=== PATIENT | male | born 1955 | race Caucasian/White ===

== ENCOUNTER 2020-08-19 06:34 | Day surgery (SDC) | payer OTHER ==
--- NOTE | 2020-08-14 14:06 | RAD REPORT ---
EXAM DESCRIPTION: RAD - Chest Pa And Lat (2 Views) - 08/14/2020 2:01 pm CLINICAL HISTORY: preop Chest pain. COMPARISON: No comparisons FINDINGS: The lungs are clear. The heart is upper limit of normal in size. No displaced fractures.
[2020-08-14 14:22] LABS: Absolute Lymphocytes (CBC) 1.6 K/uL (0.7-4.9); Basophils % 0.4 % (0-1.3); Hematocrit 42.9 % (39.6-49.0); Lymphocytes % 20.2 % (15.3-44.8); MPV 9.8 fL (7.6-11.3); RBC Red Blood Cell Count 4.53 M/uL (4.33-5.43)
[2020-08-14 14:34] LABS: Protime INR 1.05
[2020-08-14 15:02] LABS: Potassium 4.5 mmol/L (3.5-5.1)
[2020-08-19] MEDS ORDERED: NA CHLORIDE 0.9% 500 ML ONE (07:01)
[2020-08-19] MEDS ORDERED: HEPA 1000U/500MLS 1,000 UNIT/500 ML BAG IV ONE (07:35)
[2020-08-19] MEDS ORDERED: LIDOCAINE 1% 20 ML MDV ONE (07:35)
[2020-08-19] MEDS ORDERED: MIDAZOLAM HCL 2 MG/2 ML INJ ONE ×2 (07:41→07:47)
[2020-08-19] MEDS ORDERED: NITROGLYCERIN 100 MCG/ML SYR (for cath lab use only) IV ONE (07:42)
[2020-08-19] MEDS ORDERED: FENTANYL CITR 100 MCG/2 ML ONE (07:42)
[2020-08-19] MEDS ORDERED: ATROPINE SULF 1 MG/10 ML SYR IV ONE (07:43)
[2020-08-19] MEDS ORDERED: NA CHLORIDE 0.9% 0 ML ONE (07:44)
[2020-08-19] MEDS ORDERED: NITROGLYCERIN/D5W 0 MG/0 ML BTL IV ONE (07:44)
[2020-08-19] MEDS ORDERED: METOPROLOL TARTRATE 5 MG/5 ML INJ IV ONE ×3 (07:56→08:05)
[2020-08-19 08:31] VITALS: TEMP 96.9
--- NOTE | 2020-08-19 09:21 | OP ---
Date of Procedure: 08/19/2020 Surgeon: Mauro Childs MD Program Schedule Clerk: Veronica Dos Santos. Indication: Mr. Sung is a 65-year-old white male with history of CAD, status post RCA and LAD stent, who came in basically with unstable angina, scheduled for a heart catheterization as an outpatient t adan 08/19/2020. Procedure In Detail: He was brought as an outpatient, prepped and draped in routine sterile fashion, given Versed and fentanyl for sedation. A 6-Filipino sheath introduced in the right common femoral ar pedro successfully, using the Seldinger technique and 10 cc xylocaine. JL4 and JR4 catheter were used to do the heart catheterization. He was found to have a 50% proximal LAD. The patent LAD stent a 5 0% ostial diagonal, 100% RCA occluded at the stent with collaterals from the LAD to the RCA. He was right dominant. Complications: There were no complications. Estimated Blood Loss: 5 mL. Anesthesia: Total conscious sedation was 45 minutes. Final Diagnoses: 1.Severe coronary artery disease. We will continue medical therapy. 2.Incidental atrial fibrillation. He is status post 50 mg of IV Lopressor push, remained in atrial fibrillation, rate was 110. He is on beta-pravin at home and aspirin. I am going to add Xarelto to his regimen and I will see him in the office in next 2 weeks. He will be at bedrest for 2 hours after using Angio-Seal today. I will see him in the office in the next couple of days. BELEM/ARMAND Voice ID: [id number] Report ID: [id number]
[2020-08-19 10:29] VITALS: BP 135/68; O2SAT 94
== END 2020-08-19 10:15 | disposition home or self-care (01) ==
LOC: CCL 06:34
DX: I25.110 Atherosclerotic heart disease of native coronary artery with unstable angina pectoris (principal); I25.82 Chronic total occlusion of coronary artery; I48.91 Unspecified atrial fibrillation; I10 Essential (primary) hypertension; E78.2 Mixed hyperlipidemia; E11.9 Type 2 diabetes mellitus without complications; E66.9 Obesity, unspecified; Z68.30 Body mass index [BMI] 30.0-30.9, adult; Z95.5 Presence of coronary angioplasty implant and graft; Z79.02 Long term (current) use of antithrombotics/antiplatelets; Z87.891 Personal history of nicotine dependence; Z82.49 Family history of ischemic heart disease and other diseases of the circulatory system
CPT/HCPCS: 93005; 85025; 80048; 36415; 85610; 82947; 85730; 71046; 93454; U0002; C1893; J2250; J3010; J7040; J1644; J0583

== ENCOUNTER 2021-02-22 10:32 | Inpatient (IN) | payer OTHER ==
[2021-02-22 11:35] LABS: Absolute Lymphocytes (CBC) 1.6 K/uL (0.7-4.9); Basophils % 0.4 % (0-1.3); Hematocrit 39.3 % (39.6-49.0); Lymphocytes % 15.8 % (15.3-44.8); MPV 9.3 fL (7.6-11.3); RBC Red Blood Cell Count 4.11 M/uL (4.33-5.43)
[2021-02-22 11:36] LABS: Protime INR 1.11
[2021-02-22] MEDS ORDERED: MORPHINE 2 MG/ML SYR ONE ×2 (11:36→12:44)
--- NOTE | 2021-02-22 11:38 | RAD REPORT ---
EXAM DESCRIPTION: RAD - Chest Single View - 02/22/2021 11:24 am CLINICAL HISTORY: CHEST PAIN COMPARISON: Two view chest August 14 TECHNIQUE: AP portable chest image was obtained 02/22/2021 11:24 am . FINDINGS: No new mass or consolidation identified in the lung parenchyma. Chronic interstitial opaci ties are not clearly different when adjusting for the technique differences on the 2 examinations. Ba seline pattern could potentially mask a mild edema or infiltrate. Heart and vasculature are normal. No measurable pleural effusion and no pneumothorax. No acute bony abnormality seen. No acute aortic findings suspected. IMPRESSION: Prominent interstitial pattern matching comparison. Extent of chronic disease could mask early edema or infiltrate.
[2021-02-22 11:57] LABS: Bilirubin Direct 0.2 mg/dL (0-0.2); Bilirubin Total 0.6 mg/dL (0.2-1.0); Magnesium 1.9 mg/dL (1.8-2.4); Potassium 4.6 mmol/L (3.5-5.1); Protein, Total 7.8 g/dL (6.4-8.2)
[2021-02-22 12:03] LABS: Troponin (Emerg Dept Use Only) 0.6 ng/mL (0.0-0.045)
--- NOTE | 2021-02-22 13:03 | RAD REPORT ---
EXAM DESCRIPTION: CT - Angio Aorta For Dissection - 02/22/2021 12:42 pm CLINICAL HISTORY: Chest pain radiating to the back. back pain;Chest pain COMPARISON: No comparisons TECHNIQUE: CT angiography of the aorta was performed with MIPs. All CT scans are performed using dose optimization technique as appropriate and may include automated exposure control or mA/KV adjustment according to patient size. FINDINGS: A left aortic arch is present with normal branching pattern of the great vessels.No acute aortic finding is seen such as aneurysm, penetrating ulcer or dissection. The celiac axis, SMA, HILARIA and renal arteries are patent. No evidence of pulmonary embolism. Mild pulmonary edema is seen. Small bilateral pleural effusions. The liver demonstrates no focal mass or biliary dilatation.The spleen, pancreas, adrenal glands and k idneys are within normal limits for arterial phase imaging.15 mm cyst superior right kidney. No bowel obstruction, free fluid or abscess.Moderate stool is present throughout the colon with sigmo id diverticulosis. No diverticulitis suspectedNo pathologic enlarged lymphadenopathy identified.Kristi l appendix. Small bilateral fat containing inguinal hernias. Mild lumbosacral degenerative changes. IMPRESSION: No acute aortic finding is demonstrated.No pulmonary embolism. Mild to moderate CHF. Moderate fecal retention throughout the colon with diverticulosis coli.
--- NOTE | 2021-02-22 13:43 | ER ---
Nurse's Notes [facility] Name: Fawad Sung Age: 66 yrs Sex: Male : 1955 Arrival Date: 02/22/2021 Time: 10:33 Bed 8 Private MD: Diagnosis: Subsequent non-ST elevation (NSTEMI) myocardial infarction Presentation: 02/22 10:41 Chief complaint: Patient states: chest pain and upper back pain that began "a few days aa5 ago". Pt states "I've been taking some old Nitro that I had at home and they've been working pretty well". Pt also reports SOB. Coronavirus screen: cough unrelated to allergies. Ebola Screen: Patient negative for fever greater than or equal to 101.5 degrees Fahrenheit, and additional compatible Ebola Virus Disease symptoms. Initial Sepsis Screen: Does the patient meet any 2 criteria? No. Patient's initial sepsis screen is negative. Does the patient have a suspected source of infection? No. Patient's initial sepsis screen is negative. Risk Assessment: Do you want to hurt yourself or someone else? Patient reports no desire to harm self or others. Onset of symptoms was January 2021. 10:41 Method Of Arrival: Ambulatory aa5 10:41 Acuity: PONCE 2 aa5 Historical: - Allergies: 10:43 No Known Allergies; aa5 - PMHx: 10:43 Diabetes mellitus; Hypertensive disorder; aa5 - PSHx: 10:43 Heart Stents x 3; aa5 - Immunization history:: Client reports having NOT received the Covid vaccine. Last tetanus immunization: unknown, Pneumococcal vaccine status is unknown. - Social history:: Smoking status: Patient denies any tobacco usage or history of. Screenin:20 Abuse screen: Denies threats or abuse. Nutritional screening: No deficits noted. tw5 Tuberculosis screening: No symptoms or risk factors identified. Fall Risk None identified. Assessment: 10:45 Pain: Pain radiates to anterior aspect of left upper chest, mid-sternal area and left tw5 breast Pain began 2-3 days ago. 11:20 General: Appears uncomfortable, Behavior is calm, cooperative, Reports fatigue for 2-3 tw5 days. Neuro: Level of Consciousness is awake, alert, obeys commands, Oriented to person, place, time, situation, Appropriate for age Speech is normal. Cardiovascular: Reports chest pain, shortness of breath, "I just feel winded real bad. I had a good day Monday, I went bowling with family and went out to eat." Heart tones S1 S2 Capillary refill < 3 seconds Rhythm is PVC's noted on monitor. Respiratory: Reports shortness of breath at rest Airway is patent Trachea midline Respiratory effort is. GI: No deficits noted. No signs and/or symptoms were reported involving the gastrointestinal system. 12:18 Reassessment: Patient and/or family updated on plan of care and expected duration. Pain tw5 level reassessed. "I would like another shot of that morphine." Patient states symptoms have not improved. at the bedside currently. . 12:53 Reassessment: Patient and/or family updated on plan of care and expected duration. Pain tw5 level reassessed. "The morphine helped for a second, but the pain is back and it comes in go in sharp waves". 13:40 Reassessment: Patient and/or family updated on plan of care and expected duration. Pain tw5 level reassessed. Patient is alert, oriented x 3, equal unlabored respirations, skin warm/dry/pink. Respiratory: Reports shortness of breath Airway is patent Trachea midline Respiratory effort is unlabored. 14:53 Reassessment: Patient states symptoms have improved. General: Appears in no apparent tw5 distress. comfortable, Behavior is calm, cooperative. Pain: Pain currently is 2 out of 10 on a pain scale. 14:53 Cardiovascular: Reports since "The pain is a little better, after you put that cream on tw5 my chest, but I am uncomfortable.". 16:00 Reassessment: Patient appears in no apparent distress at this time. Patient and/or jd3 family updated on plan of care and expected duration. Pain level reassessed. Patient is alert, oriented x 3, equal unlabored respirations, skin warm/dry/pink. awaiting admission. 16:54 Reassessment: Patient appears in no apparent distress at this time. Patient and/or jd3 family updated on plan of care and expected duration. Pain level reassessed. Patient is alert, oriented x 3, equal unlabored respirations, skin warm/dry/pink. pt with A-fib, provider notified, EKG done and medicated as ordered. 17:37 Reassessment: Patient appears in no apparent distress at this time. Patient and/or jd3 family updated on plan of care and expected duration. Pain level reassessed. Patient is alert, oriented x 3, equal unlabored respirations, skin warm/dry/pink. Cardiovascular: Rhythm is regular. 17:55 Reassessment: "I am just feeling cold, but I feel a little better.". Cardiovascular: tw5 Rhythm is atrial fibrillation. 17:57 General: Cherri, at the bedside. . tw5 19:00 Reassessment: Patient and/or family updated on plan of care and expected duration. Pain ea level reassessed. Patient is alert, oriented x 3, equal unlabored respirations, skin warm/dry/pink. 20:10 Reassessment: Patient and/or family updated on plan of care and expected duration. Pain ea level reassessed. Patient is alert, oriented x 3, equal unlabored respirations, skin warm/dry/pink. Pt admitted to second floor, left ED via wheelchair per ED Nurse pt tolerating well. Vital Signs: 10:40 BP 136 / 77; Pulse 76; Resp 22; Pulse Ox 99% on R/A; Pain 10/10; tw5 10:41 BP 136 / 77; Pulse 72; Resp 18 S; Temp 97.7(O); Pulse Ox 97% on R/A; aa5 12:51 Pain 7/10; tw5 12:53 BP 134 / 73; Pulse 80; Resp 24; Pulse Ox 96% ; Pain 7/10; tw5 12:53 Pain 4/10; tw5 13:27 Weight 115.67 kg (M); kg 13:40 BP 150 / 79; Pulse 79; Resp 22; Pulse Ox 96% on 2 lpm NC; Pain 5/10; tw5 14:53 BP 143 / 62; Pulse 76; Resp 24; Pulse Ox 99% on 2 lpm NC; Pain 2/10; tw5 15:03 Pain 3/10; tw5 15:03 Pain 3/10; tw5 16:00 BP 145 / 81; Pulse 110; Resp 20 S; Pulse Ox 98% on R/A; jd3 16:53 BP 133 / 107; Pulse 123; Resp 21 S; Pulse Ox 98% on R/A; jd3 17:36 BP 136 / 81; Pulse 78; Resp 16 S; Pulse Ox 98% on R/A; jd3 17:55 BP 136 / 81; Pulse 119; Resp 24; Pulse Ox 98% on R/A; Pain 0/10; tw5 19:21 BP 142 / 79; Pulse 72; Resp 18; Pulse Ox 98% ; ea 13:40 Oxygen dropped to 88 on RA. NC placed on patient. tw5 16:53 provider notified of A-fib jd3 17:36 normal sinus jd3 ED Course: 10:33 Patient arrived in ED. as 10:39 Arm band placed on Patient placed in an exam room, on a stretcher. aa5 10:40 Bed in low position. quality assurance monitor chassis on. Pulse ox on. NIBP on. tw5 10:40 EKG done, by ED staff, reviewed by Sean Rubio MD. tw5 10:41 Melissa Farris is Primary Nurse. tw5 10:43 Triage completed. aa5 10:46 Sean Hansen PA is PHCP. cp 10:46 Sean Rubio MD is Attending Physician. cp 11:10 Awaiting lab results. tw5 11:10 Door closed. Noise minimized. Lights dimmed. Verbal reassurance given. tw5 11:10 Patient maintains SpO2 saturation greater than 95% on room air. tw5 11:20 Patient has correct armband on for positive identification. Side rails up X2. tw5 11:24 XRAY Chest (1 view) In Process Unspecified. EDMS 11:25 Initial lab(s) drawn, by ED staff, COVID swab sent to lab. tw5 11:26 Accessed peripheral vein via ultrasound, utilizing dynamic ultrasound technique using jd3 20G Nexia IV catheter ,sterile technique, per hospital protocol. Clean \\T\\ dry. Dressing intact. Good blood return. Flushes easily. 20 G to the left AC. 12:42 CT Aorta for Dissection In Process Unspecified. EDMS 12:54 Awaiting: Awaiting on CT scan results. tw5 12:54 Verbal reassurance given. tw5 13:40 Awaiting re-evaluation by ER provider. tw5 13:40 Oxygen administration via nasal cannula \\T\\ 2L/min. tw5 13:41 Popeye Al DO is Hospitalizing Provider. cp 13:43 Awaiting bed assignment. tw5 13:44 Door closed. Noise minimized. Lights dimmed. Warm blanket given. Verbal reassurance tw5 given. 14:53 Call light in reach. Door closed. Noise minimized. Lights dimmed. Verbal reassurance tw5 given. 15:04 Patient assisted to chair. . tw5 17:57 No apparent distress. tw5 17:57 Diet: Patient given a heart healthy meal tray. tw5 19:21 No provider procedures requiring assistance completed. Patient admitted, IV remains in ea place. Administered Medications: 11:16 Drug: morphine 2 mg Route: IVP; Site: left antecubital; tw5 12:22 Drug: morphine 2 mg Route: IVP; Site: left antecubital; jd3 12:51 Follow up: Pain 7/10 Adult; Response: No adverse reaction; Pain is decreased tw5 12:52 Follow up: Response: RASS: Alert and Calm (0) tw5 12:53 Follow up: Pain 4/10; Response: RASS: Alert and Calm (0); "It is better, but my chest tw5 still feels heavy." 13:42 Drug: Aspirin Chewable Tablet 324 mg Route: PO; kg 15:03 Follow up: Pain 3/10 Adult; Response: No adverse reaction; Pain is decreased tw5 13:42 Drug: Lovenox (enoxaparin) 1 mg/kg Route: Sub-Q; Site: right lower abdomen; kg 15:03 Follow up: Response: No adverse reaction tw5 13:42 Drug: Nitro-Bid (nitroglycerin) Ointment 2 % 0.5 inches Route: Transdermal; Site: kg anterior chest wall; 15:03 Follow up: Pain 3/10 Adult; Response: No adverse reaction; Pain is decreased tw5 16:53 Drug: Metoprolol 25 mg Route: PO; jd3 17:58 Follow up: Response: No adverse reaction; Cardiac rhythm is unchanged tw5 16:53 Drug: Metoprolol 5 mg Route: IVP; Site: left antecubital; jd3 17:58 Follow up: Response: No adverse reaction; Cardiac rhythm is unchanged tw5 Intake: Outcome: 13:42 Decision to Hospitalize by Provider. cp 18:00 Admitted to Med/surg Report called to Attempted to call report. No nurse available. tw5 18:49 Admitted to Med/surg Report called to Attempted to call report again. Was told Cherry tw5 would be the receiving nurse. Placed on hold for 3min 20:10 Condition: stable ea 20:14 Patient left the ED. ea Signatures: Dispatcher [employer] Brianne Segura Audri, RN RN aa5 Sean Hansen PA PA cp Antunez, Elena, RN RN ea Davies, Jonathon, RN RN jRenetta Puentes RN RN kg Polina Farrisfany Corrections: (The following items were deleted from the chart) 11:27 11:10 Inserted saline lock: 20 gauge in left antecubital area, using aseptic technique. jd3 12:53 11:28 Pain 4/10 Adult; "It is better, but my chest still feels heavy." 14:54 14:53 Cardiovascular:
--- NOTE | 2021-02-22 13:43 | EDPHYS ---
Physician Documentation [facility] Name: Fawad Sung Age: 66 yrs Sex: Male : 1955 Arrival Date: 02/22/2021 Time: 10:33 Bed 8 Private MD: ED Physician Sean Rubio HPI: 02/22 10:53 This 66 yrs old Male presents to ER via Ambulatory with complaints of Chest cp Pain. 10:54 The patient or guardian reports chest pain that is located primarily in the substernal cp area. Onset: 3 day(s) ago. The pain radiates to 10:54 Associated signs and symptoms: Pertinent positives: shortness of breath, Pertinent cp negatives: abdominal pain, cough, diaphoresis, lower extremity pain, lower extremity swelling, syncope, vomiting. 10:54 The chest pain is described as aching. cp 10:54 Duration: The patient or guardian reports multiple episodes, that wax and wane. cp Modifying factors: the symptoms are aggravated by activity. Historical: - Allergies: 10:43 No Known Allergies; aa5 - PMHx: 10:43 Diabetes mellitus; Hypertensive disorder; aa5 - PSHx: 10:43 Heart Stents x 3; aa5 - Immunization history:: Client reports having NOT received the Covid vaccine. Last tetanus immunization: unknown, Pneumococcal vaccine status is unknown. - Social history:: Smoking status: Patient denies any tobacco usage or history of. ROS: 10:55 Cardiovascular: Positive for chest pain, Negative for edema, palpitations. cp 10:55 Eyes: Negative for injury, pain, redness, and discharge. cp 10:55 Constitutional: Negative for body aches, chills, fever, poor PO intake. 10:55 ENT: Negative for drainage from ear(s), ear pain, sore throat, difficulty swallowing, difficulty handling secretions. 10:55 Respiratory: Negative for cough, shortness of breath, wheezing. 10:55 Abdomen/GI: Negative for abdominal pain, nausea, vomiting, and diarrhea. 10:55 Back: Positive for radiated pain. 10:55 : Negative for urinary symptoms. 10:55 Neuro: Negative for altered mental status, headache, syncope, weakness. 10:55 All other systems are negative. Exam: 10:47 ECG was reviewed by the Attending Physician. cp 11:00 Constitutional: The patient appears in no acute distress, alert, awake, cp non-diaphoretic, non-toxic, well developed, well nourished, uncomfortable. 11:00 Head/Face: Normocephalic, atraumatic. cp 11:00 Eyes: Periorbital structures: appear normal, Conjunctiva: normal, no exudate, no injection, Sclera: no appreciated abnormality, Lids and lashes: appear normal, bilaterally. 11:00 ENT: External ear(s): are unremarkable, Nose: is normal, Mouth: Lips: moist, Oral mucosa: moist, Posterior pharynx: Airway: no evidence of obstruction, patent. 11:00 Neck: ROM/movement: is normal, is supple, without pain, no range of motions limitations, no nuchal rigidity. 11:00 Chest/axilla: Inspection: normal, Palpation: is normal, no crepitus, no tenderness. 11:00 Cardiovascular: Rate: normal, Rhythm: regular, Edema: is not appreciated, JVD: is not appreciated. 11:00 Respiratory: the patient does not display signs of respiratory distress, Respirations: normal, no use of accessory muscles, no retractions, labored breathing, is not present, Breath sounds: are clear throughout, no decreased breath sounds, no stridor, no wheezing. 11:00 Abdomen/GI: Inspection: abdomen appears normal, Bowel sounds: active, all quadrants, Palpation: abdomen is soft and non-tender, in all quadrants. 11:00 Back: pain, that is moderate, ROM is normal. 11:00 Skin: cellulitis, is not appreciated, no rash present. 11:00 Neuro: Orientation: to person, place \\T\\ time. Mentation: is normal, Motor: moves all fours, strength is normal, Sensation: no obvious gross deficits. 16:33 ECG was reviewed by the Attending Physician. cp Vital Signs: 10:40 BP 136 / 77; Pulse 76; Resp 22; Pulse Ox 99% on R/A; Pain 10/10; tw5 10:41 BP 136 / 77; Pulse 72; Resp 18 S; Temp 97.7(O); Pulse Ox 97% on R/A; aa5 12:51 Pain 7/10; tw5 12:53 BP 134 / 73; Pulse 80; Resp 24; Pulse Ox 96% ; Pain 7/10; tw5 12:53 Pain 4/10; tw5 13:27 Weight 115.67 kg (M); kg 13:40 BP 150 / 79; Pulse 79; Resp 22; Pulse Ox 96% on 2 lpm NC; Pain 5/10; tw5 14:53 BP 143 / 62; Pulse 76; Resp 24; Pulse Ox 99% on 2 lpm NC; Pain 2/10; tw5 15:03 Pain 3/10; tw5 15:03 Pain 3/10; tw5 16:00 BP 145 / 81; Pulse 110; Resp 20 S; Pulse Ox 98% on R/A; jd3 16:53 BP 133 / 107; Pulse 123; Resp 21 S; Pulse Ox 98% on R/A; jd3 17:36 BP 136 / 81; Pulse 78; Resp 16 S; Pulse Ox 98% on R/A; jd3 17:55 BP 136 / 81; Pulse 119; Resp 24; Pulse Ox 98% on R/A; Pain 0/10; tw5 19:21 BP 142 / 79; Pulse 72; Resp 18; Pulse Ox 98% ; ea 13:40 Oxygen dropped to 88 on RA. NC placed on patient. tw5 16:53 provider notified of A-fib jd3 17:36 normal sinus jd3 MDM: 10:47 Patient medically screened. jewels 11:00 Differential diagnosis: abnormal EKG, acute myocardial infarction, acute pericarditis, cp pancreatitis, pulmonary embolus, stable angina, thoracic aortic disection, unstable angina. 12:33 Physician consultation: Juan Panda MD was contacted at 12:30, regarding consult, cp patient's condition, in the emergency department to see patient at 12:30. 13:15 Data reviewed: vital signs, nurses notes, lab test result(s), EKG, radiologic studies, cp CT scan, plain films. 13:15 The patient was given aspirin in the Emergency Department. Test interpretation: by ED cp physician or midlevel provider: ECG, plain radiologic studies. Response to treatment: the patient's symptoms have markedly improved after treatment, and as a result, I will admit patient. 02/22 10:47 Order name: Basic Metabolic Panel; Complete Time: 12:05 02/22 12:05 Interpretation: Normal except: GLUC 164; BUN 39; GFR 69. 02/22 10:47 Order name: CBC with Diff; Complete Time: 12:03 02/22 12:03 Interpretation: Normal except: RBC 4.11; HGB 12.8; HCT 39.3; RDW 15.3; PIO% 74.7. 02/22 10:47 Order name: LFT's; Complete Time: 12:12 02/22 12:12 Interpretation: Normal except: GLOB 3.8. 02/22 10:47 Order name: Magnesium; Complete Time: 12:12 02/22 10:47 Order name: NT PRO-BNP; Complete Time: 12:12 02/22 12:12 Interpretation: Abnormal: NT PRO-BNP 2026. 02/22 10:47 Order name: PT-INR; Complete Time: 12:03 02/22 10:47 Order name: Troponin (emerg Dept Use Only); Complete Time: 12:05 02/22 12:05 Interpretation: Abnormal: TROPED 0.60. 02/22 11:21 Order name: Lipase; Complete Time: 12:12 [facility] 02/22 12:44 Order name: SARS-COV-2 RT PCR; Complete Time: 12:53 [facility] 02/22 12:53 Interpretation: Results reviewed. 02/22 16:02 Order name: T4 Free [facility] 02/22 16:02 Order name: Hemoglobin A1c [facility] 02/22 16:02 Order name: Lipid Profile [facility] 02/22 16:02 Order name: Thyroid Stimulating Hormone [facility] 02/22 16:10 Order name: Urinalysis [facility] 02/22 16:10 Order name: Basic Metabolic Panel [facility] 02/22 16:10 Order name: Basic Metabolic Panel [facility] 02/22 16:10 Order name: CBC with Automated Diff [facility] 02/22 16:10 Order name: CBC with Automated Diff [facility] 02/22 16:10 Order name: NT PRO-BNP [facility] 02/22 16:10 Order name: NT PRO-BNP [facility] 02/22 16:10 Order name: Troponin I [facility] 02/22 10:42 Order name: Cardiac monitoring; Complete Time: 11:08 [facility] 02/22 10:42 Order name: EKG - Nurse/Tech; Complete Time: 11: [facility] 02/22 10:42 Order name: IV Saline Lock; Complete Time: 11: [facility] 02/22 10:42 Order name: Labs collected and sent; Complete Time: 11:27 tw5 02/22 10:42 Order name: O2 Per Protocol; Complete Time: 11:08 tw5 02/22 10:42 Order name: O2 Sat Monitoring; Complete Time: 11:08 tw5 02/22 10:47 Order name: XRAY Chest (1 view); Complete Time: 12:03 02/22 10:47 Order name: EKG; Complete Time: 10:48 02/22 12:04 Order name: CT Aorta for Dissection; Complete Time: 13:07 02/22 13:16 Order name: EKG; Complete Time: 13:16 02/22 13:16 Order name: EKG - Nurse/Tech; Complete Time: 13:39 02/22 15:58 Order name: CONS Physician Consult [facility] 02/22 16:09 Order name: Heart Healthy [facility] 02/22 16:10 Order name: Troponin I [facility] 02/22 16:10 Order name: Troponin I [facility] 02/22 16:10 Order name: Troponin I [facility] 02/22 16:15 Order name: Echo with Doppler [facility] 02/22 17:26 Order name: T4 Free [facility] EC:47 Rate is 76 beats/min. Rhythm is regular. [place] interval is normal. QRS interval is normal. cp QT interval is normal. Interpreted by me. Reviewed by me. 16:33 Rate is 120 beats/min. Rhythm is irregular. QRS interval is normal. QT interval is cp normal. T waves are Inverted in leads II, III. Interpreted by me. Reviewed by me. Administered Medications: 11:16 Drug: morphine 2 mg Route: IVP; Site: left antecubital; tw5 12:22 Drug: morphine 2 mg Route: IVP; Site: left antecubital; jd3 12:51 Follow up: Pain 7/10 Adult; Response: No adverse reaction; Pain is decreased tw5 12:52 Follow up: Response: RASS: Alert and Calm (0) tw5 12:53 Follow up: Pain 4/10; Response: RASS: Alert and Calm (0); "It is better, but my chest tw5 still feels heavy." 13:42 Drug: Aspirin Chewable Tablet 324 mg Route: PO; kg 15:03 Follow up: Pain 3/10 Adult; Response: No adverse reaction; Pain is decreased tw5 13:42 Drug: Lovenox (enoxaparin) 1 mg/kg Route: Sub-Q; Site: right lower abdomen; kg 15:03 Follow up: Response: No adverse reaction tw5 13:42 Drug: Nitro-Bid (nitroglycerin) Ointment 2 % 0.5 inches Route: Transdermal; Site: kg anterior chest wall; 15:03 Follow up: Pain 3/10 Adult; Response: No adverse reaction; Pain is decreased tw5 16:53 Drug: Metoprolol 25 mg Route: PO; jd3 17:58 Follow up: Response: No adverse reaction; Cardiac rhythm is unchanged tw5 16:53 Drug: Metoprolol 5 mg Route: IVP; Site: left antecubital; jd3 17:58 Follow up: Response: No adverse reaction; Cardiac rhythm is unchanged tw5 Disposition: 02/23 06:00 Co-signature as Attending Physician, Sean Rubio MD I agree with the assessment and jewels plan of care. Disposition Summary: 02/22/21 13:42 Hospitalization Ordered Hospitalization Status: Inpatient Admission cp Provider: Popeye Al cp Location: Telemetry/MedSurg (Inpatient) cp Condition: Stable cp Problem: new cp Symptoms: have improved cp Bed/Room Type: Standard cp Room Assignment: 423(02/22/21 17:51) bd Diagnosis - Subsequent non-ST elevation (NSTEMI) myocardial infarction cp Forms: - Medication Reconciliation Form cp - SBAR form cp Signatures: Dispatcher [employer] EDJeannette Medina Corey, MD MD cha Calderon, Audri RN RN aa5 Sean Hansen PA PA cp Juan C Cuellar RN RN jRenetta Puentes RN RN kg Wood, Tiffany tw5 Corrections: (The following items were deleted from the chart) 02/22 11:21 10:55 LIPASE+C.LAB.BRZ ordered. EDMS EDMS 11:43 11:03 CORONAVIRUS+MR.LAB.BRZ ordered. EDMS EDMS 17:51 13:42 cp bd
[2021-02-22] MEDS ORDERED: ASPIRIN 81 MG CHEWABLE TABLET ONE (13:54)
[2021-02-22] MEDS ORDERED: NITROGLYCERIN 1 GM PKT TD ONE (13:54)
[2021-02-22] MEDS ORDERED: ENOXAPARIN 100 MG/ML SYR SQ ONE (13:56)
[2021-02-22] MEDS ORDERED: ENOXAPARIN 30 MG/0.3 ML SQ ONE (13:56)
--- NOTE | 2021-02-22 16:00 | CON ---
Date of Consultation: 02/22/2021 Reason For Consultation: Chest pain. History Of Present Illness: This is a 66-year-old male, who has been having chest pain on and off, p ressure-like, radiates to the left upper extremity history of coronary artery disease, sta tus post few stents placement in the past, has small coronary arteries with diffuse disease, history of dyslipidemia, hypertension, presented with chest pain over the past 3-4 days with significant shor tness of breath and dyspnea on exertion as well as orthopnea. No nausea, vomiting, or diaphoresis. Past Medical History: As outlined above in the HPI. Medications: Refer to reconciliation sheet for detailed list. Allergies: NO KNOWN DRUG ALLERGIES. Family History: No premature coronary artery disease or cancer. Social History: Does not smoke or drink. Does not use any drugs. Review of Systems: All systems reviewed and they were negative except what mentioned in HPI. Physical Examination: Vital Signs: Reviewed. Head and Neck: Pupils are equal, reactive to light. Intact eye movements. Positive JVD. No cervic al lymphadenopathy. Neck: Supple. Thyroid is not enlarged. Lungs: Decreased breathing sounds with faint crackles in bases. No accessory muscle use or muscle r etraction. Heart: Regular rate and rhythm. No extra sounds. Abdomen: Soft, nontender. Bowel sounds positive. No organomegaly. No masses or hernia. No rigidi ty or rebound. Extremities: Edema +1 bilaterally. No clubbing or cyanosis. Intact pulses. Skin: No rash noted. Neurologic: Alert, awake, oriented x3. No acute focal deficits appreciated. Investigations: BUN is 39, creatinine 1.06. His troponin is 0.6. NT-proBNP is 2026. EKG without a cute ST abnormalities, but has some frequent PVCs and CT chest ruled out dissection and PE, but there is a moderate congestive heart failure. Assessment And Recommendations: 1.Chest pain with positive troponin. Start the patient on aspirin and on IV heparin or Lovenox ther apeutic dose and keep the patient n.p.o. past midnight for possible coronary angiogram tomorrow alan dover and obtain echocardiogram. 2.Acute congestive heart failure exacerbation. Start on Lasix 40 mg IV q.12 hours and monitor BUN, creatinine, and electrolytes. 3.Hypertension. Blood pressure is slightly elevated. Can use nitroglycerin patch 1 inch to upper c hest q.8 hours for blood pressure control, chest pain control, and please trend at least 2 more sets of troponins. Thank you for the consult. YAMIL Voice ID: [id number] Report ID: [id number]
[2021-02-22] MEDS ORDERED: LABETALOL 20 MG/4ML SYRINGE IV PRN (16:01)
[2021-02-22] MEDS ORDERED: ACETAMINOPHEN 500 MG TAB PO PRN (16:05)
[2021-02-22] MEDS ORDERED: ONDANSETRON 4 MG/2 ML VIAL IV PRN (16:05)
[2021-02-22] MEDS ORDERED: HYDROCODONE/APAP 5/325 MG TAB PO PRN (16:08)
--- NOTE | 2021-02-22 16:12 | P.HP ---
Certification for Inpatient Patient admitted to: Inpatient With expected LOS: >2 Midnights Patient will require the following post-hospital care: None Practitioner: I am a practitioner with admitting privileges, knowledge of patient current condition, hospital course, and medical plan of care. Services: Services provided to patient in accordance with Admission requirements found in Title 42 Section 412.3 of the Code of Federal Regulations Patient History Date of Service: 02/22/21 Reason for admission: Chest pain History of Present Illness: Patient is a 66-year-old male with a past medical history significant for DM 2, hypertension, CAD with stents who presents with complaint of chest pain located in the substernal chest. Patient reported that chest pain has been ongoing for the past couple of months intermittently but became worse in the last 4 days. Patient rated pain as 10/10 and described pain as pressure\sharp in quality. Patient indicated that chest pain radiates to his shoulders and back. Patient reports associated signs and symptoms of cough, shortness of breath, BLE edema and diaphoresis. Patient reported that he had a left heart catheterization with his can cutter 6 months ago and was placed on Xarelto because he was told that he has scar tissue around his cardiac stents. Patient reported that he took the Xarelto for a month and stopped taking the medication. Patient denies any other signs or symptoms. Symptoms are aggravated or relieved by nothing. Patient decided to present to the hospital due to worsening symptoms. Allergies No Known Allergies Allergy (Verified 08/14/20 13:15) Home medications list reviewed: No - Past Medical/Surgical History -: CAD with stents -: DM 2 -: HTN -: Cardiac stents placement - Family History Father -: Cancer Mother -: Other (see notes) ([facility] ) - Social History Smoking Status: Former smoker Alcohol use: No CD- Drugs: No Caffeine use: Yes Place of Residence: Home Review of Systems General: Malaise Eyes: Unremarkable ENT: Unremarkable Respiratory: Cough, Shortness of Breath, SOB with Excertion Cardiovascular: Chest Pain Gastrointestinal: Unremarkable Genitourinary: Unremarkable Musculoskeletal: Pedal edema Integumentary: Unremarkable Neurological: As per HPI Physical Examination - Physical Exam General: Alert, In no apparent distress, Oriented x3 HEENT: Atraumatic, PERRLA, Mucous membr. moist/pink, EOMI, Sclerae nonicteric Neck: Supple, 2+ carotid pulse no bruit, No LAD, Without JVD or thyroid abnormality Respiratory: Diminished Cardiovascular: Regular rate/rhythm, Normal S1 S2, Edema Capillary refill: <2 Seconds Gastrointestinal: Normal bowel sounds, No tenderness Musculoskeletal: No clubbing, No tenderness, Swelling Integumentary: No rashes, No breakdown Neurological: Normal gait, Normal speech, Normal tone, Normal affect Lymphatics: No axilla or inguinal lymphadenopathy External genitalia: Deferred Rectal: Deferred - Studies Laboratory Data (last 24 hrs) 02/22/21 11:17: PT 12.8 H, INR 1.11 02/22/21 11:17: WBC 10.30, Hgb 12.8 L, Hct 39.3 L, Plt Count 163 02/22/21 11:17: Sodium 143, Potassium 4.6, BUN 39 H, Creatinine 1.06, Glucose 164 H, Magnesium 1.9, Total Bilirubin 0.6, AST 20, ALT 26, Alkaline Phosphatase 109, Lipase 90 02/22/21 10:54: Lipase Cancelled Assessment and Plan - Plan --NSTEMI. Cardiology consulted. We will continue to trend troponin. Echocardiogram pending. Telemetry to monitor for any significant arrhythmia. Patient has a one-time dose of Lovenox in the ER. Patient placed on heparin drip. --DM2. BS monitoring with sliding scale insulin. --A. fib with RVR. Unclear if new onset or not. Continue heparin drip. Telemetry to monitor for any significant arrhythmia. Further management per c ardiologist. --History of CAD with stents. Continue aspirin, Plavix and statin. --Elevated BNP. BNP at 2026. Echocardiogram to assess LV\valvular functions and wall motion. Patient placed on diuresis with Lasix. Daily weight. Further management per can cutter. --Obesity. Likely secondary to excess calories intake. Patient counseled diet and assessed therapy. --Hypertension. Poorly controlled. Will manage BP with labetalol as needed --DVT prophylaxis with heparin drip. I have had discussion about advanced directives with the patient during this hospital admission. Addressed code status and goals of care. Spent more than 30 minutes. Case discussed withpatient and nurse. The following document was completed using voice recognition software. This can produce stone banker errors that can at times significantly distort words and phrases. Please interpret any aspect of the note that is nonsensical in light of this fact. Discharge Plan: Home Plan to discharge in: 48 Hours - Advance Directives Does patient have a Living Will: No Does patient have a Durable POA for Healthcare: No - Code Status/Comfort Care Code Status Assessed: Yes Code Status: Full Code Physician Review: Patient Assessed, Agree with Above Assessment and Plan Critical Care: No
[2021-02-22] MEDS ORDERED: ENOXAPARIN 40 MG/0.4 ML SQ SCH (17:00)
[2021-02-22] MEDS ORDERED: METOPROLOL TARTRATE 5 MG/5 ML INJ IV ONE (17:06)
[2021-02-22] MEDS ORDERED: METOPROLOL TAR 25 MG TAB ONE (17:06)
[2021-02-22 17:26] LABS: Thyroid Stimulating Hormone 2.24 uIU/mL (0.360-3.740)
[2021-02-22] MEDS ORDERED: GLUCAGON 1 MG/VIAL IM PRN (19:05)
[2021-02-22] MEDS ORDERED: D50W 25 GM/50 ML SYRINGE IV PRN (19:05)
[2021-02-22] MEDS ORDERED: HEPARIN/D5W 25,000 UNIT/500 ML BAG IV SCH (20:00)
[2021-02-22] MEDS: METOPROLOL TAR 25 MG TAB PO SCH (20:37)
[2021-02-22 20:44] VITALS: BMI 31.0
[2021-02-22] MEDS: ATORVASTATIN 40 MG TAB PO SCH (21:22)
[2021-02-22] MEDS: INSULIN -REGULAR HUMAN 50 UNIT/0.5 ML ML SQ SCH (21:23)
[2021-02-22] MEDS: QUETIAPINE 100MG TAB PO ONE ×2 (23:35→23:38)
[2021-02-23] MEDS ORDERED: QUETIAPINE 100MG TAB PO ONE (00:21)
[2021-02-23] MEDS: METOPROLOL TAR 25 MG TAB PO SCH (05:49)
[2021-02-23 06:12] LABS: Absolute Lymphocytes (CBC) 1.6 K/uL (0.7-4.9); Basophils % 0.5 % (0-1.3); Hematocrit 33.6 % (39.6-49.0); Lymphocytes % 20.6 % (15.3-44.8); MPV 9.5 fL (7.6-11.3); RBC Red Blood Cell Count 3.54 M/uL (4.33-5.43)
[2021-02-23 06:16] LABS: Urine Appearance CLEAR (Clear); Urine Bilirubin NEGATIVE (Negative); Urine Blood NEGATIVE (Negative); Urine Color YELLOW (Yellow); Urine Glucose NEGATIVE (Negative); Urine Protein NEGATIVE (Negative); Urine Specific Gravity 1.025 (1.005-1.030); Urine Urobilinogen 0.2 mg/dL (0.2-1.0); Urine pH 6.5 (5.0-7.0)
[2021-02-23 06:20] LABS: Urine Microscopic Reflex NO UMIC
--- NOTE | 2021-02-23 06:32 | P.PN ---
Subjective Date of Service: 02/23/21 Chief Complaint: Chest pain Subjective: Improving (Still with mild chest pain.) Physical Examination - Vital Signs Temperature: 98 F Blood Pressure: 127/67 Pulse: 86 Respirations: 14 Pulse Ox (%): 97 - Studies Laboratory Data (last 24 hrs) 02/22/21 11:17: Triglycerides 75, Cholesterol 114, HDL Cholesterol 54, Cholesterol/HDL Ratio 2.11 02/22/21 11:17: PT 12.8 H, INR 1.11 02/22/21 11:17: WBC 10.30, Hgb 12.8 L, Hct 39.3 L, Plt Count 163 02/22/21 11:17: Sodium 143, Potassium 4.6, BUN 39 H, Creatinine 1.06, Glucose 164 H, Magnesium 1.9, Total Bilirubin 0.6, AST 20, ALT 26, Alkaline Phosphatase 109, Lipase 90 02/22/21 10:54: Lipase Cancelled Assessment & Plan Discharge Plan: Home Plan to discharge in: 24 Hours Physician Review Additional Text: COVID: negative CXR: COMPARISON: Two view chest August 14 TECHNIQUE: AP portable chest image was obtained 02/22/2021 11:24 am . FINDINGS: No new mass or consolidation identified in the lung parenchyma. Chronic interstitial opacities are not clearly different when adjusting for the technique differences on the 2 examinations. Baseline pattern could potentially mask a mild edema or infiltrate. Heart and vasculature are normal. No measurable pleural effusion and no pneumothorax. No acute bony abnormality seen. No acute aortic findings suspected. IMPRESSION: Prominent interstitial pattern matching comparison. Extent of chronic disease could mask early edema or infiltrate. CT Scan: COMPARISON: No comparisons TECHNIQUE: CT angiography of the aorta was performed with MIPs. All CT scans are performed using dose optimization technique as appropriate and may include automated exposure control or mA/KV adjustment according to patient size. FINDINGS: A left aortic arch is present with normal branching pattern of the great vessels.No acute aortic finding is seen such as aneurysm, penetrating ulcer or dissection. The celiac axis, SMA, HILARIA and renal arteries are patent. No evidence of pulmonary embolism. Mild pulmonary edema is seen. Small bilateral pleural effusions. The liver demonstrates no focal mass or biliary dilatation.The spleen, pancreas, adrenal glands and kidneys are within normal limits for arterial phase imaging.15 mm cyst superior right kidney. No bowel obstruction, free fluid or abscess.Moderate stool is present throughout the colon with sigmoid diverticulosis. No diverticulitis suspectedNo pathologic enlarged lymphadenopathy identified.Normal appendix. Small bilateral fat containing inguinal hernias. Mild lumbosacral degenerative changes. IMPRESSION: No acute aortic finding is demonstrated.No pulmonary embolism. Mild to moderate CHF. Moderate fecal retention throughout the colon with diverticulosis coli. Physical exam: General: Alert, In no apparent distress, Oriented x3 HEENT: Neck supple Respiratory: Clear to auscultation. Currently on room air Cardiovascular: Atrial fibrillation Capillary refill: <2 Seconds Gastrointestinal: Normal bowel sounds, No tenderness Musculoskeletal: No clubbing, No tenderness, Swelling Integumentary: No rashes, No breakdown Neurological: Normal gait, Normal speech, Normal tone, Normal affect Lymphatics: No axilla or inguinal lymphadenopathy External genitalia: Deferred Rectal: Deferred Impression: Chest pain secondary to NSTEMI with history of CAD and prior stents Atrial fibrillation with RVR Acute on chronic CHF Diabetes mellitus type 2 Hypertension Hyperlipidemia Gout Insomnia Obesity, BMI of 31 Plan: Chest pain secondary to NSTEMI with history of CAD and prior stents: Spoke with cardiology this morning. Heart catheterization to be done. We will hold heparin drip at this time. Patient with prior heart catheterization showing occluded RCA with collaterals. Previous LAD stent with stenosis on last heart catheterization. Continue aspirin, Plavix, metoprolol, statin medication. Await findings from heart catheterization. Atrial fibrillation with RVR: Continue with metoprolol XL. Continue with above plan of care. Acute on chronic CHF: Patient on room air at this time. Await echocardiogram. Will change Lasix to oral. Recheck chest x-ray tomorrow. Diabetes mellitus type 2: Continue Accu-Cheks and sliding scale. Hemoglobin A1c 6.9. Hypertension: Restart lisinopril 40 mg daily. Continue metoprolol XL 50 mg daily. Hyperlipidemia: Continue statin medication Gout: Obtain restart home medication Insomnia: Obtain restart home medication Obesity, BMI of 31: Will address lifestyle modification education. CODE STATUS: Full code DVT prophylaxis: Heparin drip Advanced care planning: Home at discharge Time Spent Managing Pts Care (In Minutes): 55
[2021-02-23 06:34] LABS: BUN Blood Urea Nitrogen 31 mg/dL (7-18); Bicarbonate 28 mmol/L (21-32); Glucose Level 176 mg/dL (74-106); NT PRO-BNP 3171 pg/mL (<125); Potassium 3.9 mmol/L (3.5-5.1); Sodium Level 141 mmol/L (136-145)
[2021-02-23] MEDS: ASPIRIN 81 MG CHEWABLE TABLET PO SCH (08:55)
[2021-02-23] MEDS: CLOPIDOGREL 75 MG TABLET PO SCH (08:55)
[2021-02-23] MEDS: INSULIN -REGULAR HUMAN 50 UNIT/0.5 ML ML SQ SCH ×4 (08:56→20:22)
[2021-02-23] MEDS ORDERED: POTASSIUM CL SA 10 MEQ TAB PO ONE (09:00)
[2021-02-23] MEDS ORDERED: FUROSEMIDE 40 MG/4 ML VIAL IV SCH (09:00)
[2021-02-23] MEDS ORDERED: METOPROLOL TARTRATE 5 MG/5 ML INJ IV PRN (09:10)
[2021-02-23] MEDS ORDERED: METOPROLOL XL 50 MG TAB PO SCH (09:10)
[2021-02-23] MEDS ORDERED: LIDOCAINE 1% 20 ML MDV ONE (10:08)
[2021-02-23] MEDS ORDERED: HEPA 1000U/500MLS 1,000 UNIT/500 ML BAG IV ONE (10:08)
[2021-02-23] MEDS ORDERED: NITROGLYCERIN 100 MCG/ML SYR (for cath lab use only) IV ONE (10:09)
[2021-02-23] MEDS ORDERED: ATROPINE SULF 1 MG/10 ML SYR IV ONE (10:09)
[2021-02-23] MEDS ORDERED: MIDAZOLAM HCL 2 MG/2 ML INJ ONE (10:09)
[2021-02-23] MEDS ORDERED: NA CHLORIDE 0.9% 50 ML ONE (10:09)
[2021-02-23] MEDS ORDERED: FENTANYL CITR 100 MCG/2 ML ONE (10:09)
[2021-02-23] MEDS ORDERED: NITROGLYCERIN/D5W 25 MG/250 ML BTL IV ONE (10:09)
[2021-02-23] MEDS ORDERED: NA CHLORIDE 0.9% 250 ML ONE (10:14)
[2021-02-23] MEDS ORDERED: AMIODARONE HCL 150 MG/3 ML INJ IV ONE (11:16)
[2021-02-23] MEDS ORDERED: AMIODARONE IN DEXTROSE,ISO-OSM 0 MG/0 ML BAG IV ONE (11:16)
[2021-02-23] MEDS ORDERED: METOPROLOL TARTRATE 5 MG/5 ML INJ IV ONE ×2 (11:16→11:19)
[2021-02-23] MEDS ORDERED: D5W 0 ML IV ONE (11:21)
[2021-02-23] MEDS ORDERED: PRASUGREL (EFFIENT) 10 MG TAB ONE (11:46)
[2021-02-23] MEDS ORDERED: ZOLPIDEM TARTRATE 5 MG TABLET PO PRN (14:41)
[2021-02-23] MEDS ORDERED: ONDANSETRON 4 MG/2 ML VIAL IV PRN (14:41)
[2021-02-23] MEDS ORDERED: MORPHINE 4 MG/ML SYR IV PRN (14:42)
[2021-02-23] MEDS ORDERED: NITROGLYCERIN 0.4 MG/TAB SL PRN (15:00)
[2021-02-23] MEDS ORDERED: ACETAMINOPHEN 325 MG TABLET PO PRN (15:00)
[2021-02-23] MEDS ORDERED: NA CHLORIDE 0.9% 1,000 ML IV SCH (15:00)
[2021-02-23] MEDS: SOTALOL HCL 80 MG TAB PO SCH ×2 (16:12→18:00)
--- NOTE | 2021-02-23 16:39 | EKG ---
Test Date: 2021-02-23 Test Time: 14:13:28 Inorganic Chemist: CHUNG MEASUREMENT RESULTS: Intervals: Rate: 131 MI: QRSD: 104 QT: 334 QTc: 493 [place]: P: MI: QRS: 78 T: -51 INTERPRETIVE STATEMENTS: Atrial flutter with variable AV block with premature ventricular or aberrantly conducted complexes Inferior infarct, age undetermined Abnormal ECG Compared to ECG 02/22/2021 16:25:50 Ventricular premature complex(es) now present Atrial fibrillation no longer present Myocardial infarct finding still present Electronically Signed On 02-23-21 16:38:46 CDT by Mauro Childs
--- NOTE | 2021-02-23 16:42 | EKG ---
Test Date: 2021-02-22 Test Time: 16:25:50 Phone Counselor: ALIYAH MEASUREMENT RESULTS: Intervals: Rate: 120 OK: QRSD: 100 QT: 326 QTc: 460 [place]: P: OK: QRS: 83 T: -20 INTERPRETIVE STATEMENTS: Atrial fibrillation with rapid ventricular response Possible Inferior infarct, age undetermined Abnormal ECG Compared to ECG 02/22/2021 10:41:54 Sinus rhythm no longer present Ventricular premature complex(es) no longer present Myocardial infarct finding still present Electronically Signed On 02-23-21 16:39:08 CDT by Mauro Childs
--- NOTE | 2021-02-23 16:43 | EKG ---
Test Date: 2021-02-22 Test Time: 10:41:54 Industrial Safety And Health Technician: ALIYAH MEASUREMENT RESULTS: Intervals: Rate: 76 LA: 146 QRSD: 92 QT: 382 QTc: 429 [place]: P: 56 LA: 146 QRS: 76 T: 58 INTERPRETIVE STATEMENTS: Sinus rhythm with frequent premature ventricular complexes Possible Inferior infarct, age undetermined Cannot rule out Anterior infarct, age undetermined Abnormal ECG Compared to ECG 08/14/2020 12:39:04 Ventricular premature complex(es) now present Myocardial infarct finding still present Electronically Signed On 02-23-21 16:39:20 CDT by Mauro Childs
[2021-02-23] MEDS: ATORVASTATIN 40 MG TAB PO SCH (20:19)
--- NOTE | 2021-02-23 21:46 | OP ---
Date of Procedure: 02/23/2021 Surgeon: Mauro Childs MD Procedures: Left heart catheterization, selective coronary arteriogram, and primary stent of the mid circumflex. Indication: Non-ST elevation myocardial infarction. Mr. Sung is 66. Known coronary artery disease, 100% RCA, proximal LAD in the past about 40%, patent mid LAD stent, some distal LAD disease, normal circumflex back in July 2020, came in with non-STEMI. Brought to the field laborer today. Left heart ca theterization was performed with primary stent in the circumflex. Indication was non-STEMI. Procedure In Detail: The patient was brought to the field laborer as an inpatient, prepped and draped in the routine sterile fashion. Given Versed and fentanyl for sedation. A 6-[place] sheath introduced i n the right common femoral artery successfully using the Seldinger technique and 10 mL of Xylocaine. Angiography there was normal. StarClose was used to close the case. Catheterization was done with Javier catheter. The RCA was occluded, which is known. Collaterals to the posterolateral and PDA w ere very obvious from the left system, circumflex and LAD. The left main was normal using JL4. The circumflex had a 90% mid stenosis. LAD had about a 40% proximal LAD stenosis, about 50% to 60% post stent stenosis. We decided to intervene with circumflex. A [place] wire and XBLAD 3.5 with side hole were used to cannulate the left main and cross the lesion. A 2.5 x 16 Synergy stent was placed at 1 4 atmospheres with 0% residual. There were no complications. Blood loss was 5 mL. The patient tole rated the procedure well. He was given Angiomax, aspirin, and Effient. ACT was appropriate. Anesthesia: Total conscious sedation was 60 minutes. Final Diagnoses: Coronary artery disease, severe, status post primary stent of the circumflex. He h as 100% RCA with collaterals from the left system. He has some moderate LAD disease. Plan: To treat him with medicine for now including aspirin, Plavix, cholesterol medicine. I will pu t him on sotalol 80 mg b.i.d. because of new onset atrial fibrillation. He should probably be also o n Xarelto and Eliquis. Echocardiogram is pending. Case was discussed with Dr. Al and the family . Hopefully, his chest pain will go away and his rhythm will go back to normal. May down the road, have him do a stress test or if his chest pain persist, we will probably attempt an LAD angioplasty a nd stent down the road. BELEM/ARMAND Voice ID: [id number] Report ID: [id number]
[2021-02-24] MEDS: SOTALOL HCL 80 MG TAB PO SCH ×2 (05:20→13:47)
--- NOTE | 2021-02-24 06:24 | P.PN ---
Subjective Date of Service: 02/24/21 Chief Complaint: Chest pain Subjective: Improving, Doing well (In sinus rhythm. No chest pain noted) Physical Examination - Vital Signs Temperature: 97.6 F Blood Pressure: 133/63 Pulse: 69 Respirations: 17 Pulse Ox (%): 94 Assessment & Plan Discharge Plan: Home Plan to discharge in: 24 Hours Physician Review Additional Text: COVID: negative CXR: COMPARISON: Two view chest August 14 TECHNIQUE: AP portable chest image was obtained 02/22/2021 11:24 am . FINDINGS: No new mass or consolidation identified in the lung parenchyma. Chron ic interstitial opacities are not clearly different when adjusting for the technique differences on the 2 examinations. Baseline pattern could potentially mask a mild edema or infiltrate. Heart and vasculature are normal. No measurable pleural effusion and no pneumothorax. No acute bony abnormality seen. No acute aortic findings suspected. IMPRESSION: Prominent interstitial pattern matching comparison. Extent of chronic disease could mask early edema or infiltrate. CT Scan: COMPARISON: No comparisons TECHNIQUE: CT angiography of the aorta was performed with MIPs. All CT scans are performed using dose optimization technique as appropriate and may include automated exposure control or mA/KV adjustment according to patient size. FINDINGS: A left aortic arch is present with normal branching pattern of the great vessels.No acute aortic finding is seen such as aneurysm, penetrating ulcer or dissection. The celiac axis, SMA, HILARIA and renal arteries are patent. No evidence of pulmonary embolism. Mild pulmonary edema is seen. Small bilateral pleural effusions. The liver demonstrates no focal mass or biliary dilatation.The spleen, pancreas, adrenal glands and kidneys are within normal limits for arterial phase imaging.15 mm cyst superior right kidney. No bowel obstruction, free fluid or abscess.Moderate stool is present throughout the colon with sigmoid diverticulosis. No diverticulitis suspectedNo pathologic enlarged lymphadenopathy identified.Normal appendix. Small bilateral fat containing inguinal hernias. Mild lumbosacral degenerative changes. IMPRESSION: No acute aortic finding is demonstrated.No pulmonary embolism. Mild to moderate CHF. Moderate fecal retention throughout the colon with diverticulosis coli. Heart catheterization: Date of Procedure: 02/23/2021 Surgeon: Mauro Childs MD Procedures: Left heart catheterization, selective coronary arteriogram, and primary stent of the mid circumflex. Indication: Non-ST elevation myocardial infarction. Mr. Sung is 66. Known coronary artery disease, 100% RCA, proximal LAD in the past about 40%, patent mid LAD stent, some distal LAD disease, normal circumflex back in July 2020, came in with non-STEMI. Brought to the laboratory apparatus glass blower today. Left heart catheterization was performed with primary stent in the circumflex. The RCA was occluded, which is known. Collaterals to the posterolateral and PDA were very obvious from the left system, circumflex and LAD. The left main was normal using JL4. The circumflex had a 90% mid stenosis. LAD had about a 40% proximal LAD stenosis, about 50% to 60% post stent stenosis. We decided to intervene with circumflex. A [place] wire and XBLAD 3.5 with side hole were used to cannulate the left main and cross the lesion. A 2.5 x 16 Synergy stent was placed at 14 atmospheres with 0% residual. There were no complications. Blood loss was 5 mL. The patient tolerated the procedure well. Anesthesia: Total conscious sedation was 60 minutes. Final Diagnoses: Coronary artery disease, severe, status post primary stent of the circumflex. He has 100% RCA with collaterals from the left system. He has some moderate LAD disease. Plan: To treat him with medicine for now including aspirin, Plavix, cholesterol medicine. I will put him on sotalol 80 mg b.i.d. because of new onset atrial fibrillation. Physical exam: General: Alert, In no apparent distress, Oriented x3 HEENT: Neck supple Respiratory: Clear to auscultation. Currently on room air Cardiovascular: Normal sinus rhythm Capillary refill: <2 Seconds Gastrointestinal: Normal bowel sounds, No tenderness Musculoskeletal: No clubbing, No tenderness, Swelling Integumentary: No rashes, No breakdown Neurological: Normal gait, Normal speech, Normal tone, Normal affect Lymphatics: No axilla or inguinal lymphadenopathy External genitalia: Deferred Rectal: Deferred Impression: Chest pain secondary to NSTEMI with history of CAD and prior stents status post heart catheterization showing severe CAD with primary stent of the circumflex noted, 100% stenosis of RCA with collaterals from the left system identified with moderate LAD disease as well Atrial fibrillation with RVR Acute on chronic CHF Diabetes mellitus type 2 Hypertension Hyperlipidemia Gout Insomnia Obesity, BMI of 31 Plan: Chest pain secondary to NSTEMI with history of CAD and prior stents status post heart catheterization showing severe CAD with primary stent of the circumflex noted, 100% stenosis of RCA with collaterals from the left system identified with moderate LAD disease as well: Patient has done well post heart catheterization. Stent to the circumflex performed. Patient with 100% stenosis of the RCA with collaterals noted. Moderate LAD disease noted. We will plan for discharge today. Patient will continue with aspirin, Plavix, lisinopril, sotalol. If patient with more chest pain in the future patient may require cardiac stress tests or LAD angioplasty and stent to the LAD down the road. This can be further addressed as an outpatient. Atrial fibrillation with RVR: Metoprolol was discontinued. This was replaced with sotalol. Patient now in sinus rhythm. Patient does not desire to be on blood thinners. Will discuss with cardiology about plan of care. Acute on chronic CHF: Overall stable. No need for diuretic therapy at this time. Continue 1500 cc/day fluid restriction Diabetes mellitus type 2: Continue Accu-Cheks and sliding scale. Hemoglobin A1c 6.9. Continue with Metformin and Actos at discharge Hypertension: Continue lisinopril. Metoprolol has been discontinued in place of sotalol Hyperlipidemia: Continue Crestor at discharge Gout: Continue allopurinol at discharge Insomnia: Continue Seroquel at discharge Obesity, BMI of 31: Will address lifestyle modification education. CODE STATUS: Full code DVT prophylaxis: SCD Advanced care planning: Home at discharge Time Spent Managing Pts Care (In Minutes): 55
[2021-02-24 07:25] LABS: Absolute Lymphocytes (CBC) 1.9 K/uL (0.7-4.9); Basophils % 0.4 % (0-1.3); Hematocrit 36.2 % (39.6-49.0); Lymphocytes % 21.4 % (15.3-44.8); MPV 9.5 fL (7.6-11.3); RBC Red Blood Cell Count 3.81 M/uL (4.33-5.43)
[2021-02-24] MEDS: INSULIN -REGULAR HUMAN 50 UNIT/0.5 ML ML SQ SCH ×2 (07:30→12:02)
--- NOTE | 2021-02-24 07:50 | P.DS ---
Admission Date: 02/22/21 Discharge Date: 02/24/21 Primary Care Provider: Leslie Manley NP; Cardiology-Dr. Childs Disposition: ROUTINE DISCHARGE Discharge Condition: GOOD Reason for Admission: Chest pain Consultations: Cardiology-Dr. Childs Procedures: COVID: negative CXR: COMPARISON: Two view chest August 14 TECHNIQUE: AP portable chest image was obtained 02/22/2021 11:24 am . FINDINGS: No new mass or consolidation identified in the lung parenchyma. Chronic interstitial opacities are not clearly different when adjusting for the technique differences on the 2 examinations. Baseline pattern could potentially mask a mild edema or infiltrate. Heart and vasculature are normal. No measurable pleural effusion and no pneumothorax. No acute bony abnormality seen. No acute aortic findings suspected. IMPRESSION: Prominent interstitial pattern matching comparison. Extent of chronic disease could mask early edema or infiltrate. CT Scan: COMPARISON: No comparisons TECHNIQUE: CT angiography of the aorta was performed with MIPs. All CT scans are performed using dose optimization technique as appropriate and may include automated exposure control or mA/KV adjustment according to patient size. FINDINGS: A left aortic arch is present with normal branching pattern of the great vessels.No acute aortic finding is seen such as aneurysm, penetrating ulcer or dissection. The celiac axis, SMA, HILARIA and renal arteries are patent. No evidence of pulmonary embolism. Mild pulmonary edema is seen. Small bilateral pleural effusions. The liver demonstrates no focal mass or biliary dilatation.The spleen, pancreas, adrenal glands and kidneys are within normal limits for arterial phase imaging.15 mm cyst superior right kidney. No bowel obstruction, free fluid or abscess.Moderate stool is present throughout the colon with sigmoid diverticulosis. No diverticulitis suspectedNo pathologic enlarged lymphadenopathy identified.Normal appendix. Small bilateral fat containing inguinal hernias. Mild lumbosacral degenerative changes. IMPRESSION: No acute aortic finding is demonstrated.No pulmonary embolism. Mild to moderate CHF. Moderate fecal retention throughout the colon with diverticulosis coli. Heart catheterization: Date of Procedure: 02/23/2021 Surgeon: Mauro Childs MD Procedures: Left heart catheterization, selective coronary arteriogram, and primary stent of the mid circumflex. Indication: Non-ST elevation myocardial infarction. Mr. Sung is 66. Known coronary artery disease, 100% RCA, proximal LAD in the past about 40%, patent mid LAD stent, some distal LAD disease, normal circumflex back in July 2020, came in with non-STEMI. Brought to the laboratory manager today. Left heart catheterization was performed with primary stent in the circumflex. The RCA was occluded, which is known. Collaterals to the posterolateral and PDA were very obvious from the left system, circumflex and LAD. The left main was normal using JL4. The circumflex had a 90% mid stenosis. LAD had about a 40% proximal LAD stenosis, about 50% to 60% post stent stenosis. We decided to intervene with circumflex. A [place] wire and XBLAD 3.5 with side hole were used to cannulate the left main and cross the lesion. A 2.5 x 16 Synergy stent was placed at 14 atmospheres with 0% residual. There were no complications. Blood loss was 5 mL. The patient tolerated the procedure well. Anesthesia: Total conscious sedation was 60 minutes. Final Diagnoses: Coronary artery disease, severe, status post primary stent of the circumflex. He has 100% RCA with collaterals from the left system. He has some moderate LAD disease. Plan: To treat him with medicine for now including aspirin, Plavix, cholesterol medicine. I will put him on sotalol 80 mg b.i.d. because of new onset atrial fibrillation. Medical Problem List: Chest pain secondary to NSTEMI with history of CAD and prior stents status post heart catheterization showing severe CAD with primary stent of the circumflex noted, 100% stenosis of RCA with collaterals from the left system identified with moderate LAD disease as well Atrial fibrillation with RVR Acute on chronic CHF Diabetes mellitus type 2 Hypertension Hyperlipidemia Gout Insomnia Obesity, BMI of 31 Brief History of Present Illness: 66-year-old male with history of diabetes, hypertension, CAD with prior stents presented with chest pain. Patient had heart catheterization 6 months ago. Patient admitted for treatment. Hospital Course: Patient presented with chest pain and atrial fibrillation with RVR. Patient with history of CAD with prior stents. NSTEMI identified. Patient was seen and evaluated by cardiology. Cardiology recommended heart catheterization to further evaluate. Patient required stent to the circumflex. Patient also found to have 100% stenosis of the RCA with collaterals identified. Moderate LAD disease also noted. Patient tolerated the procedure well. During the course of his stay metoprolol was discontinued in place of sotalol. Patient now in normal sinus rhythm. Patient without chest pain. At discharge the patient will continue with aspirin 81 mg daily, Plavix and a 5 mg daily, lisinopril 40 mg daily, sotalol 80 mg 1 pill twice daily, and nitroglycerin as needed for chest pain. Recommend follow-up with cardiology in 1 to 2 weeks to [facility]. If the patient continues to have chest pain in the future patient may require cardiac stress test to further evaluate or LAD angioplasty in the future. Further recommendations will come from cardiology. As mentioned above patient had atrial fibrillation with RVR. Patient previously on metoprolol. Metoprolol was discontinued and replaced with sotalol. Patient now in sinus rhythm. Patient had been on Xarelto in the past. Patient had discontinued medication as he did not want to be on blood thinners. Case discussed with cardiology. No chronic anticoagulation needed at this time. Patient will continue with aspirin and Plavix for his CAD. Further recommendations will come from cardiology as an outpatient. Patient with acute on chronic diastolic CHF. No need for diuretic therapy at this time. Continue 1500 cc/day fluid restriction and low-salt diet. Recommend to monitor his weight daily. If his weight increases by more than 5 pounds he is to contact cardiology for further recommendation. Patient with diabetes mellitus type 2. Hemoglobin A1c 6.9. At discharge patient will continue with his medications including Metformin at 1000 mg 1 pill twice daily and Actos 45 mg daily. Recommend to maintain blood sugar less than 140 fasting and less than 200 after meals. Further adjustment can be done by his PCP. Recommend to recheck hemoglobin A1c every 3 months to monitor his progress. Patient with hypertension. As mentioned above medications have been adjusted. At discharge patient will continue with lisinopril 40 mg daily. Metoprolol has been discontinued in place of sotalol. Recommend to maintain blood pressure less than 130/80. Further adjustment can be done by his PCP or cardiology. Patient with history of gout. At discharge patient will continue with his medication allopurinol 300 mg daily. Patient with history of insomnia. At discharge patient will continue with Seroquel as directed. Vital Signs/Physical Exam: Temp Pulse Resp BP Pulse Ox 97.6 F 69 17 133/63 94 02/24/21 07:48 02/24/21 07:48 02/24/21 07:48 02/24/21 07:48 02/24/21 07:48 General: Alert, In no apparent distress, Oriented x3, Cooperative HEENT: Atraumatic Neck: Supple Respiratory: Clear to auscultation bilaterally, Normal air movement Cardiovascular: Normal pulses, Regular rate/rhythm Gastrointestinal: Normal bowel sounds, No ascites, No tenderness, No masses, No rebound, No guarding Musculoskeletal: No erythema, No tenderness, No warmth Integumentary: No tenderness/swelling Neurological: Normal speech, Normal strength at 5/5 x4 extr, Normal tone Laboratory Data at Discharge: WBC 8.70 K/uL (4.3-10.9) D 02/24/21 06:47 Hgb 11.9 g/dL (13.6-17.9) L 02/24/21 06:47 Hct 36.2 % (39.6-49.0) L 02/24/21 06:47 Plt Count 158 K/uL (152-406) D 02/24/21 06:47 PT 12.8 SECONDS (9.5-12.5) H 02/22/21 11:17 INR 1.11 02/22/21 11:17 APTT 79.1 SECONDS (24.3-36.9) H 02/23/21 05:54 Sodium 141 mmol/L (136-145) 02/23/21 05:54 Potassium 3.9 mmol/L (3.5-5.1) 02/23/21 05:54 BUN 31 mg/dL (7-18) H 02/23/21 05:54 Creatinine 0.80 mg/dL (0.55-1.3) 02/23/21 05:54 Glucose 176 mg/dL (74-106) H 02/23/21 05:54 Magnesium 1.9 mg/dL (1.8-2.4) 02/22/21 11:17 Total Bilirubin 0.6 mg/dL (0.2-1.0) 02/22/21 11:17 AST 20 U/L (15-37) 02/22/21 11:17 ALT 26 U/L (12-78) 02/22/21 11:17 Alkaline Phosphatase 109 U/L (45-117) 02/22/21 11:17 Troponin I 0.67 ng/mL (0.0-0.045) H* 02/23/21 15:31 Triglycerides 75 mg/dL (<150) 02/22/21 11:17 Cholesterol 114 mg/dL (<200) 02/22/21 11:17 HDL Cholesterol 54 mg/dL (40-60) 02/22/21 11:17 Cholesterol/HDL Ratio 2.11 02/22/21 11:17 Lipase 90 U/L (73-393) 02/22/21 11:17 Home Medications: Allopurinol 300 mg PO DAILY 02/22/21 Aspirin [Adult Low Dose Aspirin EC] 81 mg PO DAILY 02/22/21 Clopidogrel Bisulfate [Plavix] 75 mg PO DAILY 02/22/21 Lisinopril [Zestril] 40 mg PO DAILY 02/22/21 Metformin HCl 1,000 mg PO BID 02/22/21 Pioglitazone HCl [Actos] 45 mg DAILY 02/22/21 Quetiapine Fumarate [Seroquel] 100 mg PO BEDTIME 02/22/21 Rosuvastatin Calcium [Crestor] 10 mg DAILY 02/22/21 Nitroglycerin 0.4 mg SL SEECOM #30 tab.subl 02/24/21 Sotalol HCl [Betapace*] 80 mg PO BID 6AM 6PM #60 tab 02/24/21 New Medications: Sotalol HCl [Betapace*] 80 mg PO BID 6AM 6PM #60 tab Nitroglycerin 0.4 mg SL SEECOM #30 tab.subl Physician Discharge Instructions: Patient presented with chest pain and atrial fibrillation with RVR. Patient with history of CAD with prior stents. NSTEMI identified. Patient was seen and evaluated by cardiology. Cardiology recommended heart catheterization to further evaluate. Patient required stent to the circumflex. Patient also found to have 100% stenosis of the RCA with collaterals identified. Moderate LAD disease also noted. Patient tolerated the procedure well. During the course of his stay metoprolol was discontinued in place of sotalol. Patient now in normal sinus rhythm. Patient without chest pain. At discharge the patient will continue with aspirin 81 mg daily, Plavix and a 5 mg daily, lisinopril 40 mg daily, sotalol 80 mg 1 pill twice daily, and nitroglycerin as needed for chest pain. Recommend follow-up with cardiology in 1 to 2 weeks to [place] hospitalization. If the patient continues to have chest pain in the future patient may require cardiac stress test to further evaluate or LAD angioplasty in the future. Further recommendations will come from cardiology. As mentioned above patient had atrial fibrillation with RVR. Patient previously on metoprolol. Metoprolol was discontinued and replaced with sotalol. Patient now in sinus rhythm. Patient had been on Xarelto in the past. Patient had discontinued medication as he did not want to be on blood thinners. Case discussed with cardiology. No chronic anticoagulation needed at this time. Patient will continue with aspirin and Plavix for his CAD. Further recommendations will come from cardiology as an outpatient. Patient with acute on chronic diastolic CHF. No need for diuretic therapy at this time. Continue 1500 cc/day fluid restriction and low-salt diet. Recommend to monitor his weight daily. If his weight increases by more than 5 pounds he is to contact cardiology for further recommendation. Patient with diabetes mellitus type 2. Hemoglobin A1c 6.9. At discharge patient will continue with his medications including Metformin at 1000 mg 1 pill twice daily and Actos 45 mg daily. Recommend to maintain blood sugar less than 140 fasting and less than 200 after meals. Further adjustment can be done by his PCP. Recommend to recheck hemoglobin A1c every 3 months to monitor his progress. Patient with hypertension. As mentioned above medications have been adjusted. At discharge patient will continue with lisinopril 40 mg daily. Metoprolol has been discontinued in place of sotalol. Recommend to maintain blood pressure less than 130/80. Further adjustment can be done by his PCP or cardiology. Patient with history of gout. At discharge patient will continue with his medication allopurinol 300 mg daily. Patient with history of insomnia. At discharge patient will continue with Seroquel as directed. Diet: ADA Activity: Ad pastora Followup: Mauro Childs MD [Primary Care Provider] - Time spent managing pt's care (in minutes): 55
[2021-02-24 07:58] LABS: Albumin 3.6 g/dL (3.4-5.0); Bilirubin Total 1.1 mg/dL (0.2-1.0); Magnesium 1.8 mg/dL (1.8-2.4); Potassium 3.8 mmol/L (3.5-5.1); Protein, Total 7.6 g/dL (6.4-8.2)
--- NOTE | 2021-02-24 08:26 | RAD REPORT ---
EXAM DESCRIPTION: RAD - Chest Single View - 02/24/2021 5:26 am CLINICAL HISTORY: follow up CHF COMPARISON: Chest Single View dated 02/22/2021; Chest Pa And Lat (2 Views) dated 08/14/2020; Angio Ao rta For Dissection dated 02/22/2021 FINDINGS: Lines: None. Lungs: Increased prominence of the pulmonary interstitium. Pleural: Blunting of the left costophrenic angle. Cardiac: Mild cardiomegaly. Bones: No acute fractures. Other: IMPRESSION: Increased prominence of the pulmonary interstitium with question new small left pleural effusion. This could reflect mild worsening edema.
[2021-02-24] MEDS ORDERED: lisinopriL 20 MG TAB PO SCH (09:00)
--- NOTE | 2021-02-24 10:20 | ECHO ---
HEIGHT: 6 ft 4 in WEIGHT: 255 lb 0 oz DATE OF STUDY: 02/23/[address]: Frances Jeter 2-DIMENSIONAL: YES M.MODE: YES DOPPLER: YES COLOR FLOW: YES TDS: PORTABLE: DEFINITY: BUBBLE STUDY: DIAGNOSIS: CHEST PAIN, STATUS POST PRENATAL NURSE CARDIAC HISTORY: CATHERIZATION: YES SURGERY: NO PROSTHETIC VALVE: NO PACEMAKER: NO MEASUREMENTS (cm) DIASTOLIC (NORMALS) SYSTOLIC (NORMALS) IVSd 0.9 (0.6-1.2) LA Diam 3.6 (1.9-4.0) LVEF 45-50% LVIDd 5.3 (3.5-5.7) LVIDs 5.9 (2.0-3.5) %FS % LVPWd 1.0 (0.6-1.2) Ao Diam 2.9 (2.0-3.7) 2 DIMENSIONAL ASSESSMENT: RIGHT ATRIUM: NORMAL LEFT ATRIUM: NORMAL RIGHT VENTRICLE: NORMAL LEFT VENTRICLE: NORMAL TRICUSPID VALVE: NORMAL MITRAL VALVE: MITRAL ANNULAR CALCIFICATION PULMONIC VALVE: NORMAL AORTIC VALVE: NORMAL PERICARDIAL EFFUSION: NONE AORTIC ROOT: NORMAL LEFT VENTRICULAR WALL MOTION: MILD GLOBAL HYPOKINESIS DOPPLER/COLOR FLOW: NORMAL COMMENTS: MILD GLOBAL HYPOKINESIS. ATRIAL FIBRILLATION. EJECTION FRACTION 45-50%. NORMAL LEFT ATRIAL SIZE. TECHNOLOGIST: MIGUE GUAJARDO
[2021-02-24] MEDS: CLOPIDOGREL 75 MG TABLET PO SCH (10:31)
[2021-02-24] MEDS: ASPIRIN 81 MG CHEWABLE TABLET PO SCH (10:31)
[2021-02-24] MEDS ORDERED: POTASSIUM CL SA 10 MEQ TAB PO ONE (10:57)
[2021-02-24] MEDS ORDERED: MAGNESIUM SULFATE 1 gm IVPB 1 GM/100 ML BAG IV ONE (10:58)
[2021-02-24 11:28] VITALS: TEMP 97; O2SAT 97
--- NOTE | 2021-02-24 12:03 | PN ---
Date of Progress Note: 02/24/2021 Subjective: Mr. Sung came in with non-ST elevation myocardial infarction, underwent a heart catheter ization yesterday with a primary stent of the circumflex. He has 100% occluded RCA, which is chronic . He had some moderate LAD disease that may have to be addressed down the road depending on his symp toms. He also had atrial fibrillation. This morning, he has no complaint. He is in sinus rhythm. He was placed on sotalol. He wants to go home. Objective: His right groin is intact. His chest is clear. Impression And Plan: 1.Coronary artery disease, status post circumflex stent. Has remaining LAD disease that needs to be followed medically. We will send him home on aspirin, Plavix, sotalol, and statin. 2.Atrial fibrillation, in sinus rhythm, on sotalol. Continue aspirin and Plavix. He has a normal e chocardiogram. 3.Hypertension. 4.Dyslipidemia. Continue present regimen. He can go home today. I will see him in the office in t he next week. Case was discussed with Dr. Al. BELEM/ARMAND Voice ID: [id number] Report ID: [id number]
[2021-02-24 13:49] VITALS: BP 127/60
--- NOTE | 2021-02-25 16:01 | EKG ---
Test Date: 2021-02-23 Test Time: 14:14:41 Pig Sticker: CHUNG MEASUREMENT RESULTS: Intervals: Rate: 128 VT: QRSD: 102 QT: 334 QTc: 487 Olpe: P: VT: QRS: 82 T: -30 INTERPRETIVE STATEMENTS: Atrial fibrillation with rapid ventricular response with premature ventricular or aberrantly conducted complexes Possible Inferior infarct, age undetermined Abnormal ECG Compared to ECG 02/23/2021 14:13:52 Ventricular premature complex(es) now present Myocardial infarct finding still present Electronically Signed On 02-25-21 15:56:47 CDT by Mauro Childs
== END 2021-02-24 14:41 | disposition home or self-care (01) | DRG 246 ==
LOC: ER 10:32 → ERHOLD 15:53 → 4TH 19:32
PROVIDERS: ADMIT Family Medicine; ATTEND Family Medicine
PROC: 027034Z Dilation of Coronary Artery, One Artery with Drug-eluting Intraluminal Device, Percutaneous Approach (ICD-10-PCS; principal; 2021-02-23)
PROC: B201YZZ Plain Radiography of Multiple Coronary Arteries using Other Contrast (ICD-10-PCS; 2021-02-23)
DX: I21.4 Non-ST elevation (NSTEMI) myocardial infarction (principal); I50.33 Acute on chronic diastolic (congestive) heart failure; I25.10 Atherosclerotic heart disease of native coronary artery without angina pectoris; I25.82 Chronic total occlusion of coronary artery; I11.0 Hypertensive heart disease with heart failure; I48.91 Unspecified atrial fibrillation; E78.5 Hyperlipidemia, unspecified; E11.9 Type 2 diabetes mellitus without complications; M10.9 Gout, unspecified; G47.00 Insomnia, unspecified; E66.9 Obesity, unspecified; Z68.31 Body mass index [BMI] 31.0-31.9, adult; Z95.5 Presence of coronary angioplasty implant and graft; Z20.822 Contact with and (suspected) exposure to COVID-19
CPT/HCPCS: 36415; 71045; 71275; 74175; 80048; 80053; 80061; 80076; 81003; 82947; 83036; 83690; 83735; 83880; 84439; 84443; 84484; 85025; 85347; 85610; 85730; 93005; 93306; 93454; 96372; 96374; 96375; 99285; C1725; C1877; C1893; C9600; J0282; J0583; J1644; J1650; J1940; J2250; J2270; J3010; J3475; J7030; J7050; Q9967; U0003